=== PATIENT | male | born 1950 | race Hispanic/Latino ===

== ENCOUNTER 2019-04-22 18:52 | Inpatient (IN) | payer OTHER ==
[~2019-04-22] VITALS: Ht 177.8 cm; Wt 71.3 kg
[2019-04-22] MEDS ORDERED: SODIUM CHLORIDE 0.9% 1000ML 1,000 ML IV ONE (19:29)
[2019-04-22] MEDS ORDERED: ASPIRIN 325 MG TABLET ONE (19:29)
[2019-04-22] MEDS ORDERED: NITROGLYCERIN 1GM/1 INCH PACKET TD ONE (19:30)
[2019-04-22 19:57] LABS: BASOPHILS % (AUTO) 0.3 % (0.0-5.0); EOSINOPHILS % (AUTO) 1.4 % (0.0-8.0); HEMATOCRIT 42.4 % (42-54); LYMPHOCYTES % (AUTO) 12.9 % (21.0-51.0); MEAN CORPUSCULAR HEMOGLOBIN 29.7 pg (27.0-33.0); MEAN CORPUSCULAR HGB CONC 33.5 g/dL (32.0-36.0); MEAN CORPUSCULAR VOLUME 88.7 fL (79-99); PLATELET COUNT (AUTO) 153 K/uL (130-400); RED BLOOD CELL COUNT(AUTO) 4.78 MIL/uL (4.50-6.20); RED CELL DISTRIBUTION WIDTH 13.3 % (11.0-15.5); WHITE BLOOD COUNT (AUTO) 7.3 K/uL (4.8-10.8)
[2019-04-22 20:07] LABS: CREATININE 1.4 mg/dL (0.5-1.5); POTASSIUM 3.8 mmol/L (3.5-5.1)
[2019-04-22] MEDS ORDERED: ACETAMINOPHEN 325 MG TAB PO PRN ×2 (21:30)
[2019-04-22] MEDS ORDERED: ONDANSETRON HCL 4 MG/2 ML VIAL IV PRN (21:30)
[2019-04-22] MEDS ORDERED: MORPHINE SULFATE 2 MG/ML 1ML SYG IV PRN (21:30)
[2019-04-22 23:25] VITALS: BP 142/83
[2019-04-23] VITALS (10 sets, daily range): BP systolic 90–128; BP diastolic 48–68
[2019-04-23] MEDS ORDERED: ENAL10TA PO (00:28)
[2019-04-23] MEDS ORDERED: ISOS30TA6 PO (00:28)
[2019-04-23] MEDS ORDERED: HYDR25TA PO (00:28)
[2019-04-23] MEDS ORDERED: ACAR50TA5 PO (00:28)
[2019-04-23] MEDS ORDERED: METO200T49 PO (00:28)
[2019-04-23] MEDS ORDERED: METF-444 PO (00:28)
[2019-04-23] MEDS ORDERED: SIMV-43 PO (00:28)
[2019-04-23] MEDS ORDERED: CYAN-52 PO (00:28)
[2019-04-23] MEDS ORDERED: AEC81 PO (00:28)
[2019-04-23] MEDS ORDERED: GLIP10TA9 PO (00:28)
[2019-04-23 07:16] LABS: BASOPHILS % (AUTO) 0.2 % (0.0-5.0); EOSINOPHILS % (AUTO) 1.1 % (0.0-8.0); LYMPHOCYTES % (AUTO) 18.4 % (21.0-51.0); MEAN CORPUSCULAR HEMOGLOBIN 29.4 pg (27.0-33.0); MEAN CORPUSCULAR HGB CONC 32.8 g/dL (32.0-36.0); MEAN CORPUSCULAR VOLUME 89.4 fL (79-99); MONOCYTES % (AUTO) 7.6 % (3.0-13.0); NEUTROPHILS % (AUTO) 72.2 % (40.0-77.0); PLATELET COUNT (AUTO) 142 K/uL (130-400); RED BLOOD CELL COUNT(AUTO) 4.36 MIL/uL (4.50-6.20); RED CELL DISTRIBUTION WIDTH 13.4 % (11.0-15.5); WHITE BLOOD COUNT (AUTO) 6.6 K/uL (4.8-10.8)
[2019-04-23 07:38] LABS: HEMOGLOBIN A1C 6.6 % (4.0-6.0)
[2019-04-23 07:43] LABS: ALBUMIN 3.2 g/dL (3.5-5.0); BILIRUBIN,TOTAL 0.6 mg/dL (0.2-1.0); CREATININE 1.5 mg/dL (0.5-1.5); POTASSIUM 4.1 mmol/L (3.5-5.1); TOTAL PROTEIN, SERUM 6.4 g/dL (6.0-8.3)
[2019-04-23] MEDS: FAMOTIDINE/PF 20 MG/2 ML VIAL IV SCH ×2 (08:41→21:13)
[2019-04-23] MEDS: GLIPIZIDE 5 MG TABLET PO SCH (08:41)
[2019-04-23] MEDS: CYANOCOBALAMIN (VITAMIN B-12) 1,000 MCG TABLET PO SCH (08:41)
[2019-04-23] MEDS: HYDROCHLOROTHIAZIDE 25 MG TABLET PO SCH (08:42)
[2019-04-23] MEDS: ISOSORBIDE MONO 30MG TAB SR PO SCH (08:42)
[2019-04-23] MEDS: ENALAPRIL MALEATE 10 MG TABLET PO SCH ×3 (08:44→21:13)
[2019-04-23] MEDS ORDERED: ASPIRIN 325MG EC TAB 325 MG TABLET.DR PO SCH (09:00)
[2019-04-23] MEDS ORDERED: METOPROLOL TARTRATE 25 MG TAB PO SCH (09:00)
[2019-04-23] MEDS ORDERED: METOPROLOL SUCCINATE 50 MG TAB.SR.24H PO SCH (09:00)
[2019-04-23] MEDS ORDERED: SODIUM CHLORIDE 0.9% 500ML 500 ML IV SCH (10:09)
[2019-04-23] MEDS ORDERED: TICAGRELOR 90 MG TABLET PO SCH (10:15)
[2019-04-23] MEDS: HEPARIN SODIUM 5000UNIT/ML 1ML VIAL ONE ×2 (11:23→11:54)
[2019-04-23] MEDS: ACARBOSE 25 MG TABLET PO SCH ×2 (11:23→17:00)
[2019-04-23 12:14] LABS: INR 1.06 (0.85-1.15); PARTIAL THROMBOPLASTIN TIME 27.4 SEC (26.3-35.5); PROTHROMBIN TIME 11.4 SEC (9.6-11.6)
[2019-04-23] MEDS: HEPARIN 25000 UNITS/250 ML D5W 250 ML IV SCH ×2 (12:28→18:15)
[2019-04-23] MEDS ORDERED: MIDAZOLAM HCL 1 MG/ML 2ML VIAL ONE (13:23)
[2019-04-23] MEDS ORDERED: IOHEXOL-350 50ML VIAL IV ONE ×2 (13:23→15:00)
[2019-04-23] MEDS ORDERED: NITROGLYCERIN 2 MG/VIAL VIAL IV ONE (13:23)
[2019-04-23] MEDS ORDERED: IOHEXOL 350 MG/ML 100ML INFUS..BTL IV ONE (13:23)
[2019-04-23] MEDS ORDERED: HEPARIN SODIUM 1000UNIT/ML 10ML VIAL ONE (13:23)
[2019-04-23] MEDS ORDERED: LIDOCAINE HCL 2% 20ML ONE (13:24)
[2019-04-23] MEDS ORDERED: FENTANYL CITRATE PF 50 MCG/1 ML 2ML VIAL ONE (13:24)
--- NOTE | 2019-04-23 16:34 | NUR ---
INITIAL Patient lives with spouse, Kristen Dos Santos, [phone]. Another emergency contact is son, Saúl Dos Santos, [phone]. No home services or DME. Patient able to complete ADL's independently and drives. [place] . [place]. DCP [place]. Addendum: 04/23/19 at 1636 by NICK BECERRIL SS Amended: Links added.
[2019-04-23] MEDS: TICAGRELOR 90 MG TABLET PO SCH (21:13)
[2019-04-23] MEDS: METOPROLOL TARTRATE 25 MG TAB PO SCH (21:13)
[2019-04-23] MEDS: SIMVASTATIN 10 MG TABLET PO SCH (21:13)
[2019-04-24 02:15] LABS: BASOPHILS % (AUTO) 0.1 % (0.0-5.0); EOSINOPHILS % (AUTO) 0.6 % (0.0-8.0); HEMATOCRIT 36.6 % (42-54); LYMPHOCYTES % (AUTO) 9.8 % (21.0-51.0); MEAN CORPUSCULAR HEMOGLOBIN 29.1 pg (27.0-33.0); MEAN CORPUSCULAR HGB CONC 32.8 g/dL (32.0-36.0); MEAN CORPUSCULAR VOLUME 88.8 fL (79-99); NEUTROPHILS % (AUTO) 81.1 % (40.0-77.0); PLATELET COUNT (AUTO) 135 K/uL (130-400); RED BLOOD CELL COUNT(AUTO) 4.12 MIL/uL (4.50-6.20); RED CELL DISTRIBUTION WIDTH 13.6 % (11.0-15.5)
[2019-04-24 02:31] LABS: ALBUMIN 3.1 g/dL (3.5-5.0); BILIRUBIN,TOTAL 0.5 mg/dL (0.2-1.0); CREATININE 1.5 mg/dL (0.5-1.5); POTASSIUM 3.9 mmol/L (3.5-5.1); TOTAL PROTEIN, SERUM 6.3 g/dL (6.0-8.3)
[2019-04-24 03:35] VITALS: BP 106/72
[2019-04-24 07:41] VITALS: BP 102/70
[2019-04-24] MEDS: CYANOCOBALAMIN (VITAMIN B-12) 1,000 MCG TABLET PO SCH (09:40)
[2019-04-24] MEDS: TICAGRELOR 90 MG TABLET PO SCH ×2 (09:40→20:20)
[2019-04-24] MEDS: ISOSORBIDE MONO 30MG TAB SR PO SCH (09:40)
[2019-04-24] MEDS: HYDROCHLOROTHIAZIDE 25 MG TABLET PO SCH (09:40)
[2019-04-24] MEDS: ASPIRIN 81 MG EC TAB PO SCH (09:40)
[2019-04-24] MEDS: GLIPIZIDE 5 MG TABLET PO SCH (09:40)
[2019-04-24 11:37] VITALS: BP 111/59
[2019-04-24] MEDS: ACARBOSE 25 MG TABLET PO SCH ×3 (12:00→17:14)
[2019-04-24] MEDS: METOPROLOL TARTRATE 25 MG TAB PO SCH ×2 (12:23→20:20)
[2019-04-24] MEDS: FAMOTIDINE/PF 20 MG/2 ML VIAL IV SCH ×2 (12:23→20:20)
[2019-04-24 15:27] VITALS: BP 114/54
[2019-04-24 18:49] VITALS: BP 113/53
[2019-04-24] MEDS: SIMVASTATIN 10 MG TABLET PO SCH (20:20)
--- NOTE | 2019-04-24 23:19 | NUR ---
PER DR NORMAN D/C IV PEPCID, CONTINUE ON PO PEPCID. LABS IN AM.
[2019-04-24 23:25] VITALS: BP 122/68
[2019-04-25 02:38] VITALS: BP 101/59
[2019-04-25 03:21] LABS: HEMATOCRIT 37.7 % (42-54); MEAN CORPUSCULAR HEMOGLOBIN 29.7 pg (27.0-33.0); MEAN CORPUSCULAR HGB CONC 33.7 g/dL (32.0-36.0); MEAN CORPUSCULAR VOLUME 88.3 fL (79-99); PLATELET COUNT (AUTO) 130 K/uL (130-400); RED BLOOD CELL COUNT(AUTO) 4.27 MIL/uL (4.50-6.20); RED CELL DISTRIBUTION WIDTH 13.8 % (11.0-15.5); WHITE BLOOD COUNT (AUTO) 6.8 K/uL (4.8-10.8)
[2019-04-25 03:38] LABS: ALBUMIN 3.3 g/dL (3.5-5.0); BILIRUBIN,TOTAL 0.6 mg/dL (0.2-1.0); CREATININE 1.5 mg/dL (0.5-1.5); POTASSIUM 3.6 mmol/L (3.5-5.1); TOTAL PROTEIN, SERUM 6.7 g/dL (6.0-8.3)
[2019-04-25 05:16] LABS: LYMPHOCYTES % (MANUAL) 18 % (22-44); MAN.DIFF COMMENT-IMPRESSION MANUAL DIFFERENTIAL; MONOCYTES % (MANUAL) 10 % (2-9); PLATELET MORPHOLOGY COMMENT ADEQUATE; SEGMENTED NEUTROPHILS % 72 % (40-70)
[2019-04-25 07:29] VITALS: BP 109/62
--- NOTE | 2019-04-25 07:50 | NUR ---
ASSESSMENT ENCOUNTERED PT A&OX3, CALM COOPERATIVE AND DOES NOT APPEAR TO BE IN ANY DISTRESS NOR ANY NEURO DEFICITS PRESENT. RT GROIN SOFT NONTENDER WITH NO OOZING OR HEMATOMA PRESENT. DP/PT PULSES PALPABLE. PT IS AMBULATORY, GAIT STEADY AND STRONG WITH STAND BY ASSIST. HEPARIN IV DRIP PER PROTOCOL IN PROGRESS. CALL LIGHT WITHIN REACH, FAMILY AT BEDSIDE.
[2019-04-25] MEDS: CYANOCOBALAMIN (VITAMIN B-12) 1,000 MCG TABLET PO SCH (08:03)
[2019-04-25] MEDS: ACARBOSE 25 MG TABLET PO SCH ×2 (08:03→12:00)
[2019-04-25] MEDS: GLIPIZIDE 5 MG TABLET PO SCH (08:04)
[2019-04-25] MEDS: TICAGRELOR 90 MG TABLET PO SCH ×2 (08:04→20:46)
[2019-04-25] MEDS: FAMOTIDINE 20MG TAB 20 MG TAB PO SCH ×2 (08:04→20:46)
[2019-04-25] MEDS: ASPIRIN 81 MG EC TAB PO SCH (08:04)
[2019-04-25] MEDS: ISOSORBIDE MONO 30MG TAB SR PO SCH (08:04)
[2019-04-25] MEDS: METOPROLOL TARTRATE 25 MG TAB PO SCH ×2 (09:00→20:46)
[2019-04-25 11:03] VITALS: BP 99/58
[2019-04-25] MEDS ORDERED: LIDOCAINE HCL-MPF 1% 2ML VIAL IV PRN (14:30)
[2019-04-25] MEDS ORDERED: POTASSIUM CHLORIDE 10% ELIXIR 20 MEQ/15 ML UDCUP PO PRN (14:30)
[2019-04-25] MEDS ORDERED: POTASSIUM CHLORIDE 20MEQ/100ML 100 ML IV PRN (14:30)
[2019-04-25] MEDS: POTASSIUM CHLORIDE 20 MEQ ERTAB PO PRN ×2 (14:44→14:45)
[2019-04-25 16:10] VITALS: BP 119/67
[2019-04-25 19:04] VITALS: BP 128/72
[2019-04-25] MEDS: SIMVASTATIN 10 MG TABLET PO SCH (20:46)
[2019-04-25 23:19] VITALS: BP 105/69
[2019-04-26 03:39] VITALS: BP 116/54
[2019-04-26 04:33] LABS: BASOPHILS % (AUTO) 0.3 % (0.0-5.0); EOSINOPHILS % (AUTO) 1.6 % (0.0-8.0); HEMATOCRIT 39.1 % (42-54); MEAN CORPUSCULAR HEMOGLOBIN 29.5 pg (27.0-33.0); MEAN CORPUSCULAR HGB CONC 33.2 g/dL (32.0-36.0); MEAN CORPUSCULAR VOLUME 88.9 fL (79-99); MONOCYTES % (AUTO) 11.1 % (3.0-13.0); NEUTROPHILS % (AUTO) 74.8 % (40.0-77.0); PLATELET COUNT (AUTO) 134 K/uL (130-400); RED CELL DISTRIBUTION WIDTH 13.7 % (11.0-15.5); WHITE BLOOD COUNT (AUTO) 6.4 K/uL (4.8-10.8)
[2019-04-26 04:56] LABS: ALBUMIN 3.2 g/dL (3.5-5.0); BILIRUBIN,TOTAL 0.6 mg/dL (0.2-1.0); CREATININE 1.5 mg/dL (0.5-1.5); TOTAL PROTEIN, SERUM 6.8 g/dL (6.0-8.3)
[2019-04-26 07:54] VITALS: BP 132/55
[2019-04-26] MEDS: ACARBOSE 25 MG TABLET PO SCH ×2 (08:06→12:10)
[2019-04-26] MEDS: TICAGRELOR 90 MG TABLET PO SCH (09:47)
[2019-04-26] MEDS: FAMOTIDINE 20MG TAB 20 MG TAB PO SCH (09:47)
[2019-04-26] MEDS: METOPROLOL TARTRATE 25 MG TAB PO SCH (09:47)
[2019-04-26] MEDS: ASPIRIN 81 MG EC TAB PO SCH (09:47)
[2019-04-26] MEDS: ISOSORBIDE MONO 30MG TAB SR PO SCH (09:47)
[2019-04-26] MEDS: CYANOCOBALAMIN (VITAMIN B-12) 1,000 MCG TABLET PO SCH (09:48)
[2019-04-26] MEDS: GLIPIZIDE 5 MG TABLET PO SCH (09:50)
[2019-04-26 11:44] VITALS: BP 127/66
[2019-04-26] MEDS ORDERED: METO25 PO (13:43)
[2019-04-26] MEDS ORDERED: TICA90TA PO (13:43)
[2019-04-26] MEDS ORDERED: ENAL2.5T PO (13:43)
== END 2019-04-26 15:50 | disposition home or self-care (01) | DRG 281 ==
LOC: EDH 18:52 → EDHIP 21:24 → 3CH 22:47 → 2DH 04-23 15:35
PROVIDERS: ADMIT Internal Medicine; ATTEND Internal Medicine
PROC: B2131ZZ Fluoroscopy of Multiple Coronary Artery Bypass Grafts using Low Osmolar Contrast (ICD-10-PCS; principal; 2019-04-23)
PROC: B2111ZZ Fluoroscopy of Multiple Coronary Arteries using Low Osmolar Contrast (ICD-10-PCS; 2019-04-23)
PROC: 4A023N7 Measurement of Cardiac Sampling and Pressure, Left Heart, Percutaneous Approach (ICD-10-PCS; 2019-04-23)
PROC: B41F1ZZ Fluoroscopy of Right Lower Extremity Arteries using Low Osmolar Contrast (ICD-10-PCS; 2019-04-23)
DX: I21.4 Non-ST elevation (NSTEMI) myocardial infarction (principal); I45.2 Bifascicular block; I25.110 Atherosclerotic heart disease of native coronary artery with unstable angina pectoris; E78.5 Hyperlipidemia, unspecified; E11.22 Type 2 diabetes mellitus with diabetic chronic kidney disease; I45.10 Unspecified right bundle-branch block; N18.3 Chronic kidney disease, stage 3 (moderate); G47.33 Obstructive sleep apnea (adult) (pediatric); I13.10 Hypertensive heart and chronic kidney disease without heart failure, with stage 1 through stage 4 chronic kidney disease, or unspecified chronic kidney disease; Z95.1 Presence of aortocoronary bypass graft; I25.2 Old myocardial infarction; Z79.02 Long term (current) use of antithrombotics/antiplatelets; Z79.82 Long term (current) use of aspirin; Z95.5 Presence of coronary angioplasty implant and graft
CPT/HCPCS: 36415; 71045; 80048; 80053; 80061; 82948; 83036; 83735; 84443; 84484; 85025; 85347; 85610; 85730; 93005; 93306; 93356; 93455; 99156; 99157; 99291; C1769; C1894; G0378; J1644; J2250; J3010; J3490; J7030; J7040; Q9967